=== PATIENT | female | born 1950 | race Caucasian/White ===

== ENCOUNTER 2017-07-26 11:29 | Emergency (ER) | payer MEDICARE, BC ==
[2017-07-26] MEDS: OXYCODONE/ACETAMINOPHEN (5/325) TAB PO (13:25)
== END 2017-07-26 16:47 | disposition home or self-care (01) ==
LOC: FTE 11:29
DX: M79.642 Pain in left hand (principal); I10 Essential (primary) hypertension; J45.909 Unspecified asthma, uncomplicated; E11.9 Type 2 diabetes mellitus without complications; Z85.3 Personal history of malignant neoplasm of breast; Z79.84 Long term (current) use of oral hypoglycemic drugs
CPT/HCPCS: 73110; 73110-LT; 93971; 99284-25